=== PATIENT | male | born 1970 | race American Indian/Alaskan Native ===

== ENCOUNTER 2019-07-15 19:37 | Emergency (ER) | payer BC ==
[2019-07-15 19:51] VITALS: BP 133/86
--- NOTE | 2019-07-15 19:58 | Emergency Department Report ---
Blank Doc - Documentation Documentation: 49-year-old male that presents with dizziness and headache. Denies any head t rauma. This initial assessment/diagnostic orders/clinical plan/treatment(s) is/are subject to change based on patient's health status, clinical progression and re- assessment by fellow clinical providers in the ED. Further treatment and workup at subsequent clinical providers discretion. Patient/guardians urged not to elope from the ED as their condition may be serious if not clinically assessed and managed. Initial orders include: 1- Patient sent to [facility] for further evaluation and treatment 2- labs
[2019-07-15 20:15] LABS: Basophils % (Auto) 0.8 % (0.0-1.8); Eosinophils # (Auto) 0.1 K/mm3 (0.0-0.4); Eosinophils % (Auto) 2.2 % (0.0-4.3); Hematocrit 38.3 % (35.5-45.6); Hemoglobin 13.3 gm/dl (11.8-15.2); Lymphocytes # (Auto) 1.6 K/mm3 (1.2-5.4); Lymphocytes % (Auto) 25.8 % (13.4-35.0); Mean Corpuscular HGB Conc 35 % (32-34); Mean Corpuscular Volume 84 fl (84-94); Monocytes # (Auto) 0.7 K/mm3 (0.0-0.8); Monocytes % (Auto) 10.8 % (0.0-7.3); Platelet Count 226 K/mm3 (140-440); Red Blood Count 4.58 M/mm3 (3.65-5.03); Red Cell Distribution Width 13.7 % (13.2-15.2)
[2019-07-15 20:34] LABS: Alanine Aminotransferase 22 units/L (7-56); Albumin 4.4 g/dL (3.9-5); BUN/Creatinine Ratio 13; Blood Urea Nitrogen 14 mg/dL (9-20); Calcium 9.2 mg/dL (8.4-10.2); Hemolysis Index 12
[2019-07-16] MEDS ORDERED: MECLIZINE 25 MG TAB PO ONE (00:23)
[2019-07-16] MEDS ORDERED: SODIUM CHLORIDE 0.9% 1000 ML 1,000 ML IV ONE (00:23)
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
--- NOTE | 2019-07-16 01:33 | XRay Report ---
CHEST 2 VIEWS INDICATION / CLINICAL INFORMATION: dizziness. COMPARISON: 01/18/2011 FINDINGS: SUPPORT DEVICES: None. HEART / MEDIASTINUM: No significant abnormality. LUNGS / PLEURA: No significant pulmonary or pleural abnormality. No pneumothorax. ADDITIONAL FINDINGS: No significant additional findings. IMPRESSION: 1. No acute findings. Signer Name: Jung Reyna MD Signed: 07/16/2019 1:29 AM Workstation Name: [id number]
--- NOTE | 2019-07-16 03:46 | Emergency Department Report ---
ED Dizziness HPI - General Chief Complaint: Dizziness Stated Complaint: DIZZINESS/HEADACHE Time Seen by Provider: 07/15/19 19:56 Source: patient Mode of arrival: Ambulatory Limitations: No Limitations - History of Present Illness Initial Comments: Patient is a 49-year-old -Portuguese male with a history of seizures who presents to the ED with complaint of acute onset persistent headache with dizziness and lightheadedness for the last 2 days, worse in the last 12 hours. Patient states that he was unable to work because of persistent intermittent dizziness which was characterized by room spinning around. Patient denies chest pain, shortness of breath, traumatic injury, fever, chills, cough, sore throat, nasal and sinus congestion, ear pain, change in vision, palpitations, syncope or seizures. MD Complaint: dizziness, lightheadedness, other (headache) -: Sudden, days(s) (2) Timing: sudden onset, intermittent Description: sense of movement, "room spinning", lightheadedness History of Same: No History of Trauma: No Severity: moderate Improves With: remaining still Worsens With: movement, exertion Associated Symptoms: denies other symptoms. denies: ataxia, chest pain, confusion, cough, diaphoresis, fever/chills, loss of appetite, malaise, seizure, shortness of breath, syncope, weakness, other - Related Data Previous Rx's Medication Instructions Recorded Last Taken Type Butalb/Acetamin/Caff 50-325-40 1 - 2 tab PO Q6HR PRN #15 tab 07/16/19 Unknown Rx [Fioricet 50-325-40] Ketorolac [Toradol] 10 mg PO Q8H PRN #20 tablet 07/16/19 Unknown Rx Meclizine [Antivert] 25 mg PO Q8H PRN #30 tablet 07/16/19 Unknown Rx Allergies Allergy/AdvReac Type Severity Reaction Status Date / Time No Known Allergies Allergy Unverified 07/16/19 00:38 ED Review of Systems ROS: Stated complaint: DIZZINESS/HEADACHE Other details as noted in HPI Constitutional: denies: chills, fever Eyes: denies: eye pain, eye discharge, vision change ENT: denies: ear pain, throat pain Respiratory: denies: cough, shortness of breath, wheezing Cardiovascular: denies: chest pain, palpitations Endocrine: no symptoms reported Gastrointestinal: denies: abdominal pain, nausea, diarrhea Genitourinary: denies: urgency, dysuria Musculoskeletal: denies: back pain, joint swelling, arthralgia Skin: denies: rash, lesions Neurological: headache, vertigo, other (Dizziness and lightheadedness). denies: weakness, paresthesias Psychiatric: denies: anxiety, depression Hematological/Lymphatic: denies: easy bleeding, easy bruising ED Past Medical Hx - Social History Smoking Status: Never Smoker Substance Use Type: None - Medications Home Medications: Home Medications Medication Instructions Recorded Confirmed Last Taken Type Butalb/Acetamin/Caff 50-325-40 1 - 2 tab PO Q6HR PRN #15 tab 07/16/19 Unknown Rx [Fioricet 50-325-40] Ketorolac [Toradol] 10 mg PO Q8H PRN #20 tablet 07/16/19 Unknown Rx Meclizine [Antivert] 25 mg PO Q8H PRN #30 tablet 07/16/19 Unknown Rx ED Physical Exam - General Limitations: No Limitations General appearance: alert, in no apparent distress - Head Head exam: Present: atraumatic, normocephalic, normal inspection - Eye Eye exam: Present: normal appearance, PERRL, EOMI Pupils: Present: normal accommodation - ENT ENT exam: Present: normal exam, normal orophraynx, mucous membranes moist, TM's normal bilaterally, normal external ear exam - Neck Neck exam: Present: normal inspection, full ROM - Respiratory Respiratory exam: Present: normal lung sounds bilaterally. Absent: respiratory distress, wheezes, rales, stridor, chest wall tenderness, accessory muscle use, decreased breath sounds - Cardiovascular Cardiovascular Exam: Present: normal rhythm, bradycardia, normal heart sounds. Absent: systolic murmur, diastolic murmur, rubs, gallop - GI/Abdominal GI/Abdominal exam: Present: soft, normal bowel sounds. Absent: tenderness, guarding, hyperactive bowel sounds, hypoactive bowel sounds, organomegaly - Extremities Exam Extremities exam: Present: normal inspection, full ROM, normal capillary refill - Back Exam Back exam: Present: normal inspection, full ROM - Neurological Exam Neurological exam: Present: alert, oriented X3, CN II-XII intact, normal gait, reflexes normal - Psychiatric Psychiatric exam: Present: normal affect, normal mood - Skin Skin exam: Present: warm, dry, intact, normal color. Absent: rash ED Course Vital Signs 07/15/19 07/15/19 19:49 19:54 Temperature 98.0 F 98 F Pulse Rate 55 L 58 L Respiratory 16 99 H Rate Blood Pressure 133/86 133/86 O2 Sat by Pulse 99 Oximetry ED Medical Decision Making - Lab Data Result diagrams: 07/15/19 20:02 07/15/19 20:02 - Radiology Data Radiology results: report reviewed, image reviewed The head CT scan without contrast shows no acute intracranial abnormalities or hemorrhage. Chest x-ray shows no acute cardiopulmonary abnormalities or pneumonitis. - Medical Decision Making This is a 49-year-old male with a history of seizures who presented to the ED with persistent headache and intermittent dizziness for the last 2 days worse in the last 12 hours. Patient states that he has not had any seizure for over 3 years and is on Dilantin 400 mg daily. In the ED, patient is alert and oriented x3 and is not in any distress. Lab test results were reviewed and are all nonactionable. Chest x-ray shows no acute cardiopulmonary abnormalities or pneumonitis. The head CT scan without contrast shows no acute intracranial abnormalities or hemorrhage. Patient was treated in the ED with normal saline 1 L IV bolus, also received meclizine 50 mg p.o. x1. On reevaluation, patient is ambulatory with steady gait, and stated that his dizziness has resolved. Patient was discharged home on medications and advised to follow-up with his primary care physician in 2 to 3 days for reevaluation. Patient was was advised to drink plenty of fluids and return to the ED immediately if symptoms get worse. - Differential Diagnosis dizziness; vertigo; dehydration; pneumonia; SAH; Seizure; migraine Critical care attestation.: If time is entered above; I have spent that time in minutes in the direct care of this critically ill patient, excluding procedure time. ED Disposition Clinical Impression: Dizziness, nonspecific Headache, tension-type Qualifiers: Headache chronicity pattern: acute headache Intractability: not intractable Qualified Code(s): G44.209 - Tension-type headache, unspecified, not intractable Vertigo, benign paroxysmal Qualifiers: Laterality: unspecified laterality Qualified Code(s): H81.10 - Benign paroxysma l vertigo, unspecified ear Disposition: - TO HOME OR SELFCARE Is pt being admited?: No Does the pt Need Aspirin: No Condition: Stable Instructions: Benign Paroxysmal Positional Vertigo (ED), Dizziness (ED), Acute Headache (ED) Additional Instructions: Take medications with food, drink plenty fluids and follow-up with your primary care physician in 2 to 3 days for reevaluation. Return to the ED immediately if symptoms get worse. Prescriptions: Meclizine [Antivert] 25 mg PO Q8H PRN #30 tablet PRN Reason: Vertigo Butalb/Acetamin/Caff 50-325-40 [Fioricet 50-325-40] 1 - 2 tab PO Q6HR PRN #15 tab PRN Reason: Headache Ketorolac [Toradol] 10 mg PO Q8H PRN #20 tablet PRN Reason: Pain Referrals: PRIMARY CARE,MD [Primary Care Provider] - 3-5 Days Forms: Work/School Release Form(ED) Time of Disposition: 03:47 Print Language: UZBEK
== END 2019-07-16 03:50 | disposition home or self-care (01) ==
LOC: ED 19:37
DX: G44.209 Tension-type headache, unspecified, not intractable (principal); H81.10 Benign paroxysmal vertigo, unspecified ear; Z79.899 Other long term (current) drug therapy
CPT/HCPCS: 36415; 70450; 71046; 80053; 84484; 85025; 96360; 99284; J7030

== ENCOUNTER 2019-08-16 11:46 | Emergency (ER) | payer BC ==
[2019-08-16 11:59] VITALS: BP 138/89
--- NOTE | 2019-08-16 12:05 | Emergency Department Report ---
ED Recheck HPI - General Chief Complaint: Seizure Stated Complaint: SEZIURE Time Seen by Provider: 08/16/19 12:04 Source: patient Mode of arrival: Ambulatory Limitations: No Limitations - History of Present Illness Initial Comments: pt is a 49 yo male who presents to the ED with c/o medication refill. he states he is out of his dilantin for 2 days. he states he just recently changed his insurance from [employer] to [employer] and needs a new primary care physician. he denies any recent seizure. he denies any complaints at all. pt has an empty bottle with him previously prescribed by his PCP which states that pt is to take 400 mg qhs. - Related Data Previous Rx's Medication Instructions Recorded Last Taken Type Butalb/Acetamin/Caff 50-325-40 1 - 2 tab PO Q6HR PRN #15 tab 07/16/19 Unknown Rx [Fioricet 50-325-40] Ketorolac [Toradol] 10 mg PO Q8H PRN #20 tablet 07/16/19 Unknown Rx Meclizine [Antivert] 25 mg PO Q8H PRN #30 tablet 07/16/19 Unknown Rx Phenytoin [Dilantin] 400 mg PO QHS 14 Days #56 capsule 08/16/19 Unknown Rx Allergies Allergy/AdvReac Type Severity Reaction Status Date / Time No Known Allergies Allergy Unverified 07/16/19 00:38 ED Review of Systems ROS: Stated complaint: SEZIURE Other details as noted in HPI ED Past Medical Hx - Past Medical History Previous Medical History?: Yes Hx Seizures: Yes (epilepsy) - Surgical History Past Surgical History?: Yes Additional Surgical History: brain tumor - Social History Smoking Status: Never Smoker - Medications Home Medications: Home Medications Medication Instructions Recorded Confirmed Last Taken Type Butalb/Acetamin/Caff 50-325-40 1 - 2 tab PO Q6HR PRN #15 tab 07/16/19 Unknown Rx [Fioricet 50-325-40] Ketorolac [Toradol] 10 mg PO Q8H PRN #20 tablet 07/16/19 Unknown Rx Meclizine [Antivert] 25 mg PO Q8H PRN #30 tablet 07/16/19 Unknown Rx Phenytoin [Dilantin] 400 mg PO QHS 14 Days #56 capsule 08/16/19 Unknown Rx ED Physical Exam - General Limitations: No Limitations ED Course Vital Signs 08/16/19 11:56 Temperature 98.3 F Pulse Rate 92 H Blood Pressure 138/89 ED Recheck MDM - Medical Decision Making pt is a 49 yo male who presents to the ED with c/o medication refill. he states he is out of his dilantin for 2 days. he states he just recently changed his insurance from [employer] to [employer] and needs a new primary care physician. he denies any recent seizure. he denies any complaints at all. he does not report fever, CP, SOB, n/v/d, headache, numbness, or weakness. pt has an empty bottle with him previously prescribed by his PCP which states that pt is to take 400 mg qhs. Advised patient that we could give him a 2-week supply of his medication but that this medication needed to be prescribed by a primary care physician or a neurologist. Discussed with patient that this needs to be monitored very closely, have the levels checked regularly, pt verbalized understanding. pt was given a list of multiple PCPs in the surrounding area. advised pt please take medication as prescribed. increase your water intake. please follow up with a primary care doctor in the next 2-3 days. it is very important you follow up with a primary care doctor. this medication needs to be monitored and needs routine blood work. return to the emergency room for any new or worsening symptoms. Critical care attestation.: If time is entered above; I have spent that time in minutes in the direct care of this critically ill patient, excluding procedure time. ED Disposition Clinical Impression: Medication refill Disposition: DC-01 TO HOME OR SELFCARE Is pt being admited?: No Does the pt Need Aspirin: No Condition: Stable Instructions: Recurrent Seizures Adult (ED) Additional Instructions: please take medication as prescribed. increase your water intake. please follow up with a primary care doctor in the next 2-3 days. it is very important you follow up with a primary care doctor. this medication needs to be monitored and needs routine blood work. return to the emergency room for any new or worsening symptoms. Prescriptions: Phenytoin [Dilantin] 400 mg PO QHS 14 Days #56 capsule Referrals: MARISOL [place] MD [Staff Physician] - 3-5 Days [facility] [Provider Group] - 3-5 Days [facility] [Provider Group] - 3-5 Days DAVID CH MD [Staff Physician] - 3-5 Days MIRIAN OROPEZA MD [Staff Physician] - 3-5 Days Time of Disposition: 12:07 Print Language: CHINESE
== END 2019-08-16 12:40 | disposition home or self-care (01) ==
LOC: ED 11:46
DX: G40.909 Epilepsy, unspecified, not intractable, without status epilepticus (principal); Z76.0 Encounter for issue of repeat prescription
CPT/HCPCS: 99282

== ENCOUNTER 2020-05-03 08:24 | Emergency (ER) | payer BC ==
[2020-05-03 08:32] VITALS: BP 142/84
== END 2020-05-03 09:17 | disposition left against medical advice (07) ==
LOC: ED 08:24
DX: R56.9 Unspecified convulsions (principal); Z53.21 Procedure and treatment not carried out due to patient leaving prior to being seen by health care provider

== ENCOUNTER 2020-12-10 03:48 | Emergency (ER) | payer BC, OTHER ==
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
[2020-12-10 04:27] VITALS: BP 125/75
== END 2020-12-10 06:13 | disposition home or self-care (01) ==
LOC: ED 03:48
DX: S16.1XXA Strain of muscle, fascia and tendon at neck level, initial encounter (principal); S43.402A Unspecified sprain of left shoulder joint, initial encounter; G40.909 Epilepsy, unspecified, not intractable, without status epilepticus; V89.2XXA Person injured in unspecified motor-vehicle accident, traffic, initial encounter; Y93.89 Activity, other specified; Y92.89 Other specified places as the place of occurrence of the external cause; Y99.8 Other external cause status
CPT/HCPCS: 99282